=== PATIENT | male | born 1960 | race Caucasian/White ===

== ENCOUNTER → 2016-11-26 | Outpatient (CLI) | payer BC ==
--- NOTE | 2016-11-26 12:57 | Diagnostic Imaging Report ---
EXAMINATION: Ultrasound of the neck. INDICATION: History of thyroid cancer. FINDINGS: There are lymph nodes seen in the neck, most prominent on the left side, with one lateral to the left common carotid artery measuring 2.6 x 0.6 x 1.1 cm. It has smooth margins and a thin cortex with internal hyperechogenicity, suggestive of a fatty hilum. These features are in favor of a benign etiology. A smaller lymph node at the same level on the right side measures 1.3 x 0.5 x 0.7 cm which also demonstrates a preserved fatty hilum, suggestive of a benign etiology. IMPRESSION: Bilateral minimally enlarged lymph nodes, more prominent on the left side, with the overall features in favor of a benign etiology. Clinical correlation and a followup exam in a few months would be recommended. Dictated by: Dictated on workstation # [id number]
== END ==
LOC: RAD 08:17
PROVIDERS: ATTEND Internal Medicine Endocrinology, Diabetes & Metabolism
DX: R59.0 Localized enlarged lymph nodes (principal); Z85.850 Personal history of malignant neoplasm of thyroid
CPT/HCPCS: 76536

== ENCOUNTER → 2017-06-12 | Outpatient (CLI) | payer BC ==
--- NOTE | 2017-06-12 10:09 | Diagnostic Imaging Report ---
PROCEDURE: US Gallbladder. TECHNIQUE: Multiple Real-time grayscale images were obtained over the right upper quadrant in various projections. INDICATION: Abdominal pain. FINDINGS: The pancreas is obscured. The liver contains multiple cysts. The largest cyst measures approximately 2.5 x 5.1 x 2.4 cm. The gallbladder is without stones or sludge. No wall thickening or pericholecystic fluid is seen. No biliary ductal dilatation is identified. The right kidney is unremarkable. There is no ascites. IMPRESSION: 1. Hepatic cysts. 2. No evidence of cholelithiasis or acute cholecystitis. Dictated by: Dictated on workstation # [id number]
== END ==
LOC: RAD 08:18
PROVIDERS: ATTEND Registered Nurse
DX: K76.89 Other specified diseases of liver (principal)
CPT/HCPCS: 76705

== ENCOUNTER → 2017-06-12 | Outpatient (CLI) | payer BC ==
--- NOTE | 2017-06-12 09:11 | Diagnostic Imaging Report ---
INDICATION: History of thyroid carcinoma. Correlation is made with prior study from 11/26/2016. Survey of the neck lymph nodes was performed. Left-sided lymph node lateral to the common carotid artery and jugular vein measures 2.8 x 1.2 cm. This compares with 1.1 cm. This has a thin cortex and fatty hilum. No right-sided neck lymph nodes are identified. IMPRESSION: Fatty left neck lymph node, similar in appearance to the prior ultrasound from 11/26/2016. Dictated by: Dictated on workstation # [id number]
== END ==
LOC: RAD 06:57
PROVIDERS: ATTEND Internal Medicine Endocrinology, Diabetes & Metabolism
DX: Z85.850 Personal history of malignant neoplasm of thyroid (principal)
CPT/HCPCS: 76536

== ENCOUNTER → 2017-12-11 | Outpatient (CLI) | payer BC | LOC: LAB 08:31 | PROVIDERS: ATTEND Internal Medicine Endocrinology, Diabetes & Metabolism | DX: Z08 Encounter for follow-up examination after completed treatment for malignant neoplasm (principal); Z85.850 Personal history of malignant neoplasm of thyroid | CPT/HCPCS: 36415; 84432; 86800 ==

== ENCOUNTER → 2017-12-28 | Outpatient (CLI) | payer BC ==
--- NOTE | 2017-12-28 11:01 | Diagnostic Imaging Report ---
INDICATION: Thyroid carcinoma. COMPARISON: Correlation is made with prior soft tissue neck ultrasound from 06/12/2017. FINDINGS: Evaluation of left neck lymph node previously seen lateral to the common carotid artery and jugular vein measures 2.6 x 0.6 x 1.2 cm. This compares with with 2.8 x 1.2 cm on prior. No new abnormality is seen. IMPRESSION: Stable left neck lymph node when compared with prior examination from 06/12/2017. Dictated by: Dictated on workstation # [id number]
== END ==
LOC: RAD 09:07
PROVIDERS: ATTEND Internal Medicine Endocrinology, Diabetes & Metabolism
DX: R59.0 Localized enlarged lymph nodes (principal); Z85.850 Personal history of malignant neoplasm of thyroid
CPT/HCPCS: 76536

== ENCOUNTER → 2018-12-29 | Outpatient (CLI) | payer BC ==
--- NOTE | 2018-12-29 13:10 | Diagnostic Imaging Report ---
INDICATION: Thyroid cancer. COMPARISON: Comparison is made to examination of 12/28/2017. FINDINGS: Patient is post thyroidectomy; however, there is an elongated lymph node seen to the left of midline near the surgical bed measuring 2.7 x 1.5 x 0.6 cm. This has not significantly changed when compared to previous examination. No new mass or fluid collection is identified. IMPRESSION: Stable predominantly fatty lymph node in the left neck without new abnormality identified. Dictated by: Dictated on workstation # [id number]
== END ==
LOC: RAD 12:21
PROVIDERS: ATTEND Internal Medicine Endocrinology, Diabetes & Metabolism
DX: Z85.850 Personal history of malignant neoplasm of thyroid (principal)
CPT/HCPCS: 76536

== ENCOUNTER → 2020-12-12 | Outpatient (CLI) | payer BC ==
--- NOTE | 2020-12-12 14:45 | Diagnostic Imaging Report ---
EXAM: Ultrasound of the neck. EXAM DATE: 12/12/2020 COMPARISON: 12/29/2018 HISTORY: History of thyroid cancer, status post thyroidectomy. TECHNIQUE: Multiple sonographic images of the neck were obtained. FINDINGS: There is a stable 2.5 x 1.5 x 0.5 cm primarily fatty left neck lymph node near the internal jugular vein. No other focal mass, fluid collection, or suspicious lymphadenopathy is seen. No suspicious soft tissue lesion within the thyroidectomy bed. IMPRESSION: No suspicious mass or findings of residual thyroid tissue. Stable left neck lymph node. Dictated by: Dictated on workstation # [id number]
== END ==
LOC: RAD 10:15
PROVIDERS: ATTEND Internal Medicine Endocrinology, Diabetes & Metabolism
DX: Z85.850 Personal history of malignant neoplasm of thyroid (principal)
CPT/HCPCS: 76536

== ENCOUNTER → 2021-12-09 | Outpatient (CLI) | payer BC ==
--- NOTE | 2021-12-09 21:51 | Diagnostic Imaging Report ---
US SOFT TISSUE HEAD NECK [id number] INDICATION: Thyroid cancer. Status post thyroidectomy. Surveillance imaging. COMPARISON: None available. TECHNIQUE: Multi-projectional grayscale color Doppler imaging of the neck was performed. FINDINGS: Status post thyroidectomy. No features of local recurrence or residual thyroid tissue. In the left ricardo-aspect of the neck, there is a stable elongated 2.6 x 0.6 x 1.3 cm lymph node (previously 2.5 x 1.5 x 0.5 cm). IMPRESSION: 1. No features of local recurrence. 2. Stable physiologic left lymph node. Dictated by: Dictated on workstation # [id number]
== END ==
LOC: RAD 08:30
PROVIDERS: ATTEND Internal Medicine Endocrinology, Diabetes & Metabolism
DX: C73 Malignant neoplasm of thyroid gland (principal); Z98.890 Other specified postprocedural states
CPT/HCPCS: 76536